=== PATIENT | female | born 1965 | race Caucasian/White ===

== ENCOUNTER 2018-07-23 08:44 | Outpatient (CLI) | payer OTHER ==
--- NOTE | 2018-07-23 10:45 | ULT ---
THYROID ULTRASOUND: 07/23/2018 HISTORY: Hypothyroidism for 10 years. Assess for thyroid nodule. COMPARISON: None. TECHNIQUE: Multiplanar rodriguez-scale sonographic imaging of the thyroid gland obtained. FINDINGS: The thyroid parenchyma is markedly heterogeneous. The thyroid isthmus measures 5 mm in AP dimension. The right lobe measures 5.5 x 1.8 x 1.7 cm, and the left lobe measures 4.1 x 1.5 x 1.3 cm. Two discrete nodules are noted on the right. This includes a complex cystic and solid nodule, measur ing up to 6 mm. There is also a circumscribed, oval, hyperechoic solid nodule, measuring 1.1 x 0.6 x 1.0 cm. No discrete nodules are seen within the left lobe or thyroid isthmus. IMPRESSION: Heterogeneity of the thyroid parenchyma. TI-RADS category 3 nodule within the right thyroid lobe. G iven size of less than 1.5 cm, no followup is recommended. POS: [facility]
== END 2018-07-23 08:45 | disposition home or self-care (01) ==
LOC: SCSULT 08:44
PROVIDERS: ATTEND Otolaryngology Plastic Surgery within the Head & Neck
DX: E04.2 Nontoxic multinodular goiter (principal)
CPT/HCPCS: 76536

== ENCOUNTER 2019-08-15 12:49 | Emergency (ER) | payer OTHER ==
--- NOTE | 2019-08-15 14:15 | RAD ---
PORTABLE UPRIGHT FRONTAL CHEST RADIOGRAPH: Date: 08/15/2019 COMPARISON: None. HISTORY: Fever and cough, COVID-19 exposure. FINDINGS: Lungs are clear. Heart and mediastinal contours are unremarkable. IMPRESSION: No acute findings. POS: [facility]
== END 2019-08-15 14:20 | disposition home or self-care (01) ==
LOC: ERS 12:49
DX: J06.9 Acute upper respiratory infection, unspecified (principal); E03.9 Hypothyroidism, unspecified; Z20.828 Contact with and (suspected) exposure to other viral communicable diseases
CPT/HCPCS: 71045; 87635; 87804; U0002

== ENCOUNTER 2020-09-09 15:31 | Emergency (ER) | payer OTHER ==
[2020-09-09] MEDS ORDERED: Ibuprofen 200 MG TAB ONE (17:28)
== END 2020-09-09 17:27 | disposition home or self-care (01) ==
LOC: ERS 15:31
DX: S60.222A Contusion of left hand, initial encounter (principal); E03.9 Hypothyroidism, unspecified; W10.9XXA Fall (on) (from) unspecified stairs and steps, initial encounter
CPT/HCPCS: 29125